=== PATIENT | male | born 1950 ===

== ENCOUNTER 2024-03-21 10:15 | Inpatient (IN) | payer OTHER ==
[~2024-03-21] VITALS: Ht 213.4 cm; Wt 63.5 kg
[~2024-03-21 10:15] MED LIST: SYNTHROID88 MCG PO
[2024-03-25] MEDS ORDERED: VANCOMYCIN HCL 1,000 MG VIAL ONE ×2 (06:30→16:15)
[2024-03-25] MEDS ORDERED: CEFAZOLIN SODIUM 1,000 MG VIAL ONE ×2 (06:31→12:15)
[2024-03-25] MEDS ORDERED: METHYLPREDNISOLONE SOD SUCC 125 MG VIAL ONE ×2 (07:12→07:23)
[2024-03-25] MEDS ORDERED: 0.9 % SODIUM CHLORIDE 1,000 ML IV SCH (07:30)
[2024-03-25] MEDS ORDERED: ENALAPRILAT DIHYDRATE 1.25 MG/ML VIAL IV PRN (07:30)
[2024-03-25] MEDS ORDERED: PROMETHAZINE HCL 50 MG/ML AMPUL IM PRN (07:30)
[2024-03-25] MEDS ORDERED: METHYLPREDNISOLONE ACETATE 80 MG/ML VIAL ONE ×2 (07:31→08:47)
[2024-03-25] MEDS ORDERED: TRANEXAMIC ACID 100MG/1ML (1000MG) AMPUL IV ONE (07:32)
[2024-03-25] MEDS ORDERED: PERCOCET 5-3251 EACH PO (07:35)
[2024-03-25] MEDS ORDERED: COLACE100 MG PO (07:35)
[2024-03-25] MEDS ORDERED: MEDROLPACK PO (07:35)
[2024-03-25] MEDS ORDERED: ZOFRAN8 MG PO (07:36)
[2024-03-25] MEDS ORDERED: GABAPENTIN100 M2 PO (07:36)
[2024-03-25] MEDS ORDERED: NEURONTIN800 MG PO (07:36)
[2024-03-25] MEDS ORDERED: DOCUSATE SODIUM 100MG CAP PO SCH (09:00)
[2024-03-25] MEDS ORDERED: METHYLPREDNISOLONE SOD SUCC 125 MG VIAL IV SCH (09:00)
[2024-03-25] MEDS ORDERED: FAMOtidine 20 MG TABLET PO SCH (09:00)
[2024-03-25] MEDS ORDERED: TAMSULOSIN HCL 0.4 MG CAP PO SCH (09:00)
[2024-03-25] MEDS ORDERED: MORPHINE SULFATE 4 MG/ML CARTRIDGE IV SCH (09:00)
[2024-03-25] MEDS ORDERED: VANCOMYCIN HCL 1,000 MG VIAL IV SCH (09:00)
[2024-03-25] MEDS ORDERED: MORPHINE SULFATE 4 MG/ML VIAL IV ONE (11:15)
[2024-03-25] MEDS ORDERED: CEFAZOLIN SODIUM 1,000 MG in 0.9 % SODIUM CHLORIDE 50 ML IV SCH (13:00)
[2024-03-25 15:04] VITALS: BP 127/67; O2SAT 99
[2024-03-25 16:42] VITALS: BP 133/68; O2SAT 100
[2024-03-25] MEDS ORDERED: ACETAMINOPHEN 500 MG GEL..CAP PO SCH (20:00)
[2024-03-25] MEDS ORDERED: GABAPENTIN 800 MG TABLET PO SCH (21:00)
[2024-03-26] MEDS ORDERED: SODIUM CHLORIDE 0.45 % 1,000 ML IV SCH
[2024-03-26 03:30] VITALS: BP 98/52
[2024-03-26] MEDS ORDERED: LEVOTHYROXINE SODIUM 88 MCG TABLET PO SCH (06:00)
[2024-03-26] MEDS ORDERED: OxyCODONE HCL 5 MG TABLET (ROXICODONE) PO PRN (06:01)
[2024-03-26] MEDS ORDERED: VANCOMYCIN HCL 1,000 MG VIAL ONE (07:32)
[2024-03-26 08:00] VITALS: BP 102/55
[2024-03-26 09:02] LABS: HEMATOCRIT 40.9 % (39.0-48.0); HEMOGLOBIN 13.6 g/dL (13-16.00); MEAN CELL VOLUME 91.9 fL (80.0-100.00); MEAN CORPUSCULAR HEMOGLOBIN 30.5 pg (27.00-32.0); MEAN CORPUSCULAR HGB CONC 33.2 g/dl (32.0-36.0); PLATELET COUNT 217 K/uL (150-450); RED BLOOD COUNT 4.45 M/uL (4.00-6.00)
[2024-03-26 09:18] LABS: CREATININE SERUM 0.72 mg/dL (0.70-1.30); GFR 106.42; POTASSIUM 4.25 mEq/L (3.5-5.1)
[2024-03-26 16:00] VITALS: BP 141/70; O2SAT 100
[2024-03-27] VITALS: BP 102/58; O2SAT 98
== END 2024-03-27 09:29 | disposition home or self-care (01) | DRG 426 ==
LOC: O/R 03-25 04:30 → SURH 03-25 07:00 → PED 03-25 13:11 → SURH 03-25 13:17
PROVIDERS: ADMIT Orthopaedic Surgery Orthopaedic Surgery of the Spine; ATTEND Orthopaedic Surgery Orthopaedic Surgery of the Spine
PROC: 0SG1071 Fusion of 2 or more Lumbar Vertebral Joints with Autologous Tissue Substitute, Posterior Approach, Posterior Column, Open Approach (ICD-10-PCS; 2024-03-25)
PROC: 0ST20ZZ Resection of Lumbar Vertebral Disc, Open Approach (ICD-10-PCS; 2024-03-25)
PROC: 07DR0ZZ Extraction of Iliac Bone Marrow, Open Approach (ICD-10-PCS; 2024-03-25)
PROC: 4A1104G Monitoring of Peripheral Nervous Electrical Activity, Intraoperative, Open Approach (ICD-10-PCS; 2024-03-25)
PROC: XRGC0R7 Fusion of 2 or more Lumbar Vertebral Joints using Custom-Made Anatomically Designed Interbody Fusion Device, Open Approach, New Technology Group 7 (ICD-10-PCS; principal; 2024-03-25 07:00)
DX: M48.062 Spinal stenosis, lumbar region with neurogenic claudication (principal); M96.0 Pseudarthrosis after fusion or arthrodesis; M51.26 Other intervertebral disc displacement, lumbar region